=== PATIENT | male | born 1985 | race Caucasian/White ===

== ENCOUNTER → 2020-06-22 | Outpatient (CLI) | payer BC ==
--- NOTE | 2020-06-22 17:24 | Diagnostic Imaging Report ---
INDICATION: Left upper quadrant pain. Time of exam: 5:06 PM No free air is identified. Bowel gas pattern is nonobstructed. There is no pathologic calcifications. IMPRESSION: No acute abnormality is detected. Dictated by: Dictated on workstation # [id number]
== END ==
LOC: RAD 16:50
PROVIDERS: ATTEND Physician Assistant
DX: R10.12 Left upper quadrant pain (principal)
CPT/HCPCS: 74019